=== PATIENT | male | born 1965 | race Caucasian/White ===

== ENCOUNTER → 2016-07-09 | Outpatient (CLI) | payer BC ==
[2016-07-09 08:58] LABS: SERUM ALBUMIN 4.6 g/dL (3.5-4.8)
== END ==
LOC: LAB 08:15
PROVIDERS: ATTEND Nurse Practitioner Family
DX: E78.5 Hyperlipidemia, unspecified (principal); Z79.899 Other long term (current) drug therapy
CPT/HCPCS: 36415; 80076

== ENCOUNTER → 2016-11-06 | Outpatient (CLI) | payer BC ==
--- NOTE | 2016-11-06 11:44 | DI ---
History: Right foot pain Comparison: None Findings: No fracture No malalignment No destructive changes No degenerative changes No soft tissue foreign bodies Impression: Unremarkable plain film study of the foot
== END ==
LOC: MOB RAD 11:01
PROVIDERS: ATTEND Podiatrist Foot & Ankle Surgery
DX: M79.671 Pain in right foot (principal); M10.071 Idiopathic gout, right ankle and foot; M76.61 Achilles tendinitis, right leg; M77.31 Calcaneal spur, right foot; M72.2 Plantar fascial fibromatosis
CPT/HCPCS: 73630